=== PATIENT | male | born 1960 | race African-American/Black ===

== ENCOUNTER 2021-05-14 08:29 | Day surgery (SDC) | payer OTHER ==
[~2021-05-14] VITALS: Ht 182.9 cm; Wt 104.3 kg
[2021-05-14] MEDS ORDERED: EYE DROPS (08:48)
[2021-05-14 13:26] VITALS: BP 115/78
== END 2021-05-14 13:20 | disposition home or self-care (01) | DRG 395 ==
LOC: ENDO 08:29
PROVIDERS: ATTEND Surgery
PROC: 0DJD8ZZ Inspection of Lower Intestinal Tract, Via Natural or Artificial Opening Endoscopic (ICD-10-PCS; principal; 2021-05-14)
DX: K64.8 Other hemorrhoids (principal); Z80.0 Family history of malignant neoplasm of digestive organs